=== PATIENT | female | born 1955 | race Caucasian/White ===

== ENCOUNTER 2021-01-26 10:34 | Outpatient (CLI) | payer OTHER, SELFPAY ==
--- NOTE | ~2021-01-26 | XR_ITS ---
XR chest 2V 01/26/2021 10:58 Indication: Shortness of breath and wheezing Procedure: PA and lateral views of the chest Comparison: No prior studies for comparison. Findings: The lungs are hyperinflated which is consistent with, but not diagnostic of chronic obstruc tive pulmonary disease. There are chronic interstitial changes predominantly affecting the lung perip addis in the bases. No acute focal pneumonia, edema or effusion identified. No pneumothorax. No acute osseous abnormality. Heart size is normal. Impression: 1: Chronic interstitial lung disease likely superimposed on emphysema. Reviewed, dictated and finalized at location B. Impression: 1: Chronic interstitial lung disease likely superimposed on emphysema.
== END 2021-01-26 10:35 | disposition home or self-care (01) ==
LOC: ANHIMG 10:45
PROVIDERS: PCP Family Medicine Adolescent Medicine; Visit Provider Physician Assistant
DX: R06.02 Shortness of breath (principal); J84.9 Interstitial pulmonary disease, unspecified; R06.2 Wheezing
CPT/HCPCS: 71046

== ENCOUNTER 2021-11-07 12:32 | Outpatient (CLI) | payer OTHER, SELFPAY ==
--- NOTE | ~2021-11-07 | XR_ITS ---
EXAMINATION: HAND-GRANT ARTHRITIS 3+VIEWS DATE: 11/07/2021 13:06 INDICATION: Rheumatoid arthritis with rheumatoid factor TECHNIQUE: Posteroanterior, lateral, and oblique views of the left and of the right hands as well as a ballcatchers view of both hands were obtained. COMPARISON: None. FINDINGS: Diffuse osteopenia. There is fusion involving all of the carpal bones at the right hand. Polyarticula r osteoarthritis at the bilateral hands and wrists are comprised by nonuniform joint space narrowing and small marginal osteophytes. This is severe at the left wrist, midcarpal and triscaphe joints, rig ht first carpal metacarpal joint, bilateral second metacarpophalangeal and right fourth and fifth met acarpophalangeal joints and right fifth proximal interphalangeal joints. Severe osteoarthritis or mor e likely ankylosis in the flexed position at the right second proximal interphalangeal joint. Moderat e severity osteoarthritis at the bilateral distal radioulnar joints, right wrist, left first carpomet acarpal joint, bilateral first metacarpophalangeal joints and majority the remaining interphalangeal joints. Mild palmar subluxation at the bilateral second metacarpophalangeal joints and at the right IMPRESSION: 1. Fusion between all the carpal bones at the right hand and likely at the right second proximal inte rphalangeal joint. 2. Polyarticular osteoarthritis, moderate to severe involving the majority of the joints at the bilat eral hands and wrists. Could not exclude that this represents secondary osteoarthritis superimposed o karely chronic rheumatoid arthritis. 2. Diffuse osteopenia. Reviewed, dictated and finalized at location A. IMPRESSION: 1. Fusion between all the carpal bones at the right hand and likely at the righ t second proximal interphalangeal joint. 2. Polyarticular osteoarthritis, moderate to severe involving the majority of t he joints at the bilateral hands and wrists. Could not exclude that this repres ents secondary osteoarthritis superimposed over chronic rheumatoid arthritis. 2. Diffuse osteopenia.
--- NOTE | ~2021-11-07 | XR_ITS ---
EXAMINATION: XR ankle LT min 3V, XR foot RT standing 2V, XR ankle RT min 3V, XR foot LT standing 2V DATE: 11/07/2021 13:06 INDICATION: Rheumatoid arthritis with rheumatoid factor TECHNIQUE: 1. Anteroposterior, mortise, additional oblique and lateral view of the left ankle were obtained. 2. Dorsoplantar and lateral views of the left foot were obtained. 3. Anteroposterior, mortise, additional oblique and lateral view of the right ankle were obtained. 4. Dorsoplantar and lateral views of the right foot were obtained. COMPARISON: None. FINDINGS: Diffuse osteopenia. Normal alignment at the left foot and ankle. There is flattening of Boehler's ang le at the right hindfoot raising concern for age-indeterminate right calcaneal fracture although no f racture lines appreciated. No other lesions suspicious for fracture identified. Polyarticular osteoar thritis at the bilateral feet and ankles, moderate severity at the right subtalar and talonavicular j oints, the latter with prominent dorsal osteophytes. Mild osteoarthritis at the bilateral ankles and essentially all of the remaining joints in the bilateral feet. No erosions to suggest inflammatory ar thritis such as rheumatoid. Small bilateral plantar calcaneal spurs. Soft tissues are unremarkable. IMPRESSION: 1. Flattening of Boehler's angle of the right calcaneus suspicious for age indeterminate calcaneal fr acture. Correlate with clinical history. 2. Polyarticular osteoarthritis at the bilateral feet and ankles, moderate severity at the right subt alar and talonavicular joints and otherwise mild at the bilateral ankles and remaining joints in the bilateral feet. 3. Diffuse osteopenia. Reviewed, dictated and finalized at location A. IMPRESSION: 1. Flattening of Boehler's angle of the right calcaneus suspicious for age inde terminate calcaneal fracture. Correlate with clinical history. 2. Polyarticular osteoarthritis at the bilateral feet and ankles, moderate karlos rity at the right subtalar and talonavicular joints and otherwise mild at the b ilateral ankles and remaining joints in the bilateral feet. 3. Diffuse osteopenia. IMPRESSION: 1. Flattening of Boehler's angle of the right calcaneus suspicious for age inde terminate calcaneal fracture. Correlate with clinical history. 2. Polyarticular osteoarthritis at the bilateral feet and ankles, moderate karlos rity at the right subtalar and talonavicular joints and otherwise mild at the b ilateral ankles and remaining joints in the bilateral feet. 3. Diffuse osteopenia. IMPRESSION: 1. Flattening of Boehler's angle of the right calcaneus suspicious for age inde terminate calcaneal fracture. Correlate with clinical history. 2. Polyarticular osteoarthritis at the bilateral feet and ankles, moderate karlos rity at the right subtalar and talonavicular joints and otherwise mild at the b ilateral ankles and remaining joints in the bilateral feet. 3. Diffuse osteopenia.
== END 2021-11-07 12:33 | disposition home or self-care (01) ==
PROVIDERS: PCP Family Medicine Adolescent Medicine; Visit Provider Internal Medicine
DX: J84.9 Interstitial pulmonary disease, unspecified (principal); M05.79 Rheumatoid arthritis with rheumatoid factor of multiple sites without organ or systems involvement; N18.31 Chronic kidney disease, stage 3a; M19.041 Primary osteoarthritis, right hand; M19.031 Primary osteoarthritis, right wrist; M19.042 Primary osteoarthritis, left hand; M19.032 Primary osteoarthritis, left wrist; M85.871 Other specified disorders of bone density and structure, right ankle and foot; M85.872 Other specified disorders of bone density and structure, left ankle and foot; M19.072 Primary osteoarthritis, left ankle and foot; M19.071 Primary osteoarthritis, right ankle and foot
CPT/HCPCS: 73130; 73610; 73620

== ENCOUNTER 2021-11-14 14:59 | Outpatient (CLI) | payer OTHER, SELFPAY ==
--- NOTE | ~2021-11-14 | CT_ITS ---
EXAMINATION: CT diagnostic chest w con DATE: 11/14/2021 15:33 INDICATION: Rheumatoid arthritis. Interstitial lung disease. TECHNIQUE: Computed tomography (CT) of the chest was performed with 75 CC Omnipaque 350 intravenous c ontrast. Automated exposure control and iterative reconstruction technique were employed. Exam dose: 126.65 mGy-cm total exam DLP. COMPARISON: 01/26/2021 2 view chest FINDINGS: Moderate bilateral hyperinflation and emphysematous changes of the lungs. Prominent bibasilar predominantly lower lobe honeycombing-like cystic spaces and bronchiectasis is no ayse, with lesser peripheral reticulation in the remainder of the lungs. The findings are likely due t o usual interstitial pneumonia pulmonary interstitial fibrosis and/or rheumatoid lung. No pulmonary infiltrate or consolidation or pulmonary mass lesion is noted. Normal heart size. No pericardial or pleural effusion. 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 No th oracic aortic aneurysm or dissection. No evidence of pulmonary hypertension or pulmonary embolism is noted. No hilar or mediastinal mass lesion or lymphadenopathy. There is osteopenia. No suspicious osteolytic or osteoblastic lesions are noted. IMPRESSION: Emphysematous changes of the lung Mild peripheral and prominent basilar increased reticulation with particularly prominent honeycombing -like cystic spaces and bronchiectasis. The findings are consistent with usual interstitial pneumonia interstitial fibrosis and/or rheumatoid lung at the lung bases Reviewed, dictated and finalized at Location A. Reviewed, dictated and finalized at location B. IMPRESSION: Emphysematous changes of the lung Mild peripheral and prominent basilar increased reticulation with particularly prominent honeycombing-like cystic spaces and bronchiectasis. The findings are consistent with usual interstitial pneumonia interstitial fibrosis and/or rheum atoid lung at the lung bases
== END 2021-11-14 15:00 | disposition home or self-care (01) ==
PROVIDERS: PCP Family Medicine Adolescent Medicine; Visit Provider Internal Medicine
DX: M06.9 Rheumatoid arthritis, unspecified (principal); J84.9 Interstitial pulmonary disease, unspecified; N18.30 Chronic kidney disease, stage 3 unspecified
CPT/HCPCS: 71260; Q9967

== ENCOUNTER 2021-12-21 14:33 | Outpatient (CLI) | payer OTHER, SELFPAY ==
--- NOTE | 2021-12-22 12:24 | WPDPFTINT ---
PFT Procedure Performed PFT Procedure Performed Spirometry with Pre/Post Bronchodilator Plethysmography (Lung Vol) Diffusing Cap (DLCO) Flow Vol Loop PFT Interpretation Lung volumes were measured with the body plethysmography method. Lung volumes are unremarkable. Spirometry showed normal expiratory flow rates and a normal FEV1 to FVC ratio of 68%. Following administration of a bronchodilator, there was no significant change in the expiratory flow rates. Lung diffusion capacity is mildly reduced at 77% predicted. The flow-volume loop is unremarkable. Impression: Spirometry and lung volumes within normal range. Mild reduction in lung diffusion capacity.
--- NOTE | 2021-12-22 12:26 | WPDSIXMINUTE ---
Six Minute Walk Procedure Procedure Performed Pulmonary Stress Test (6 min walk) Six Minute Walk Six Minute Walk: This 6 minute walk test was carried out with the patient breathing ambient air. The pre walk oxyhemoglobin saturation was 98%. The patient walked 152 m with no stops during testing. During the walk, the oxyhemoglobin saturation remained in the range of 98%-99%. Impression: No evidence of oxyhemoglobin desaturation on this testing.
== END 2021-12-21 14:34 | disposition home or self-care (01) ==
PROVIDERS: PCP Family Medicine Adolescent Medicine; Visit Provider Internal Medicine Pulmonary Disease
DX: J84.9 Interstitial pulmonary disease, unspecified (principal); Z87.891 Personal history of nicotine dependence; R94.2 Abnormal results of pulmonary function studies
CPT/HCPCS: 94060; 94618; 94726; 94729

== ENCOUNTER 2023-01-01 12:58 | Outpatient (CLI) | payer MEDICARE, SELFPAY ==
[2023-01-01 17:01] LABS: Thyroid Stimulating Hormone 0.305 uIU/mL (0.465-4.680)
== END 2023-01-01 12:59 | disposition home or self-care (01) ==
PROVIDERS: PCP Family Medicine Adolescent Medicine; Visit Provider Internal Medicine Hematology & Oncology
DX: E03.2 Hypothyroidism due to medicaments and other exogenous substances (principal)
CPT/HCPCS: 36415; 84443